=== PATIENT | female | born 1955 | race Caucasian/White ===

== ENCOUNTER 2017-03-09 16:44 | Emergency (ER) | payer OTHER ==
[~2017-03-09] VITALS: Ht 152.4 cm; Wt 90.7 kg
[~2017-03-09 16:44] MED LIST: ARIP1TAB5 PO; ASPI-449 PO; ATOR10TA52 PO; CLON2TAB3 PO; DOCU-80 PO; FLUO20CA19 PO; LANS15CA21 PO; LIS10T PO; NAPR220C PO; OXY10CRT PO
[2017-03-09] MEDS ORDERED: KETOROLAC TROMETH 60MG/2ML VIAL IM ONE ×2 (19:30→19:37)
[2017-03-09 20:22] VITALS: BP 129/68
== END 2017-03-09 20:21 | disposition home or self-care (01) ==
LOC: ER 16:51
DX: S80.02XA Contusion of left knee, initial encounter (principal); K21.9 Gastro-esophageal reflux disease without esophagitis; E78.5 Hyperlipidemia, unspecified; I10 Essential (primary) hypertension; Z79.899 Other long term (current) drug therapy; W01.0XXA Fall on same level from slipping, tripping and stumbling without subsequent striking against object, initial encounter; Y93.89 Activity, other specified; Y99.8 Other external cause status; Y92.89 Other specified places as the place of occurrence of the external cause
CPT/HCPCS: 73562; 73590; 93971; 96372; 99284; J1885

== ENCOUNTER 2017-03-14 08:26 | Emergency (ER) | payer OTHER ==
[~2017-03-14] VITALS: Ht 152.4 cm; Wt 90.7 kg
[2017-03-14 09:07] VITALS: BP 117/72
[2017-03-14] MEDS ORDERED: KETOROLAC TROMETH 60MG/2ML VIAL IM ONE (09:15)
== END 2017-03-14 09:45 | disposition home or self-care (01) ==
LOC: ER 08:26
DX: M17.12 Unilateral primary osteoarthritis, left knee (principal); K21.9 Gastro-esophageal reflux disease without esophagitis; E78.5 Hyperlipidemia, unspecified; I10 Essential (primary) hypertension; E66.9 Obesity, unspecified; Z79.899 Other long term (current) drug therapy; Z68.39 Body mass index [BMI] 39.0-39.9, adult
CPT/HCPCS: 96372; 99283; J1885

== ENCOUNTER 2017-11-09 18:43 | Emergency (ER) | payer OTHER ==
[~2017-11-09] VITALS: Ht 154.9 cm; Wt 90.7 kg
[2017-11-09 18:48] VITALS: BP 122/80
[2017-11-09 20:18] LABS: Basophils # (auto) 0 uL; Basophils % (auto) 0.7 % (0.0-2.0); Eosinophils # (auto) 0.3 uL; Eosinophils % (auto) 6.4 % (0.0-7.0); Hematocrit 36.6 % (36.0-46.0); Hemoglobin 12.2 g/dL (12.2-16.2); Lymphocytes # (auto) 1.6 uL; Lymphocytes % (auto) 31.2 % (10.0-50.0); Mean Corpuscular Hemoglobin 30.5 pg (28.0-32.0); Mean Corpuscular Hgb Conc. 33.3 g/dL (32.0-36.0); Mean Corpuscular Volume 91.6 fL (80.0-100.0); Monocytes # (auto) 0.4 uL; Monocytes % (auto) 8.1 % (0.0-12.0); Neutrophils # (auto) 2.8 uL; Neutrophils % (auto) 53.6 % (37.0-80.0); Nucleated Red Blood Cells % 0.1 %; Platelet Count (auto) 235 10^3/uL (140-450); Red Blood Cells 3.99 10^6/uL (4.0-5.20); Red Cell Distribution Width 14.3 % (11.8-14.3); White Blood Cell 5.2 10^3/uL (4.4-10.8)
[2017-11-09 20:39] LABS: Alanine Aminotransferase 33 U/L (13-56); Albumin 3.8 g/dL (3.4-5.0); Alkaline Phosphatase 88 U/L (45-117); Anion Gap 8 (5-15); Aspartate Aminotransferase 24 U/L (15-37); BUN/Creatinine Ratio 18.8; Bilirubin, Total 0.5 mg/dL (0.2-1.0); Blood Urea Nitrogen 16 mg/dL (7-18); Calcium 8.7 mg/dL (8.5-10.1); Carbon Dioxide 28 mmol/L (21-32); Chloride 102 mmol/L (98-107); GFR African American 87 mL/min; GFR Non-African American 72 mL/min; Glucose 115 mg/dL (74-106); Magnesium 2.5 mg/dL (1.6-2.6); Potassium 3.9 mmol/L (3.5-5.1); Sodium 138 mmol/L (136-145); Total Protein 7.6 g/dL (6.4-8.2)
== END 2017-11-09 23:32 | disposition left against medical advice (07) ==
LOC: ER 18:43
DX: R10.9 Unspecified abdominal pain (principal); Z90.49 Acquired absence of other specified parts of digestive tract; Z53.21 Procedure and treatment not carried out due to patient leaving prior to being seen by health care provider
CPT/HCPCS: 36415; 74176; 80053; 83735; 84484; 85025; 93005

== ENCOUNTER 2018-02-04 09:26 | Emergency (ER) | payer OTHER ==
[~2018-02-04] VITALS: Ht 152.4 cm; Wt 90.7 kg
[~2018-02-04 09:26] MED LIST changes: -CLON2TAB3 PO; +CLON2TAB6 PO
[2018-02-04 10:15] LABS: Urine Bacteria None Seen /hpf (None Seen)
[2018-02-04] MEDS ORDERED: PANTOPRAZOLE 40 MG/10 ML VIAL IV STA (10:30)
[2018-02-04 11:08] LABS: Urine WBC 2 /hpf (0 - 5)
[2018-02-04 11:09] LABS: Urine Specific Gravity 1.005 (1.001-1.035)
[2018-02-04 11:10] LABS: Urine Blood Normal /uL (Negative)
[2018-02-04 11:21] LABS: Basophils # (auto) 0 uL; Basophils % (auto) 0.8 % (0.0-2.0); Eosinophils # (auto) 0.4 uL; Eosinophils % (auto) 6.3 % (0.0-7.0); Hematocrit 37.3 % (36.0-46.0); Hemoglobin 12.3 g/dL (12.2-16.2); Lymphocytes # (auto) 1.8 uL; Lymphocytes % (auto) 32.4 % (10.0-50.0); Mean Corpuscular Hemoglobin 30.1 pg (28.0-32.0); Mean Corpuscular Volume 91.2 fL (80.0-100.0); Monocytes # (auto) 0.6 uL; Monocytes % (auto) 10.2 % (0.0-12.0); Neutrophils # (auto) 2.8 uL; Neutrophils % (auto) 50.3 % (37.0-80.0); Platelet Count (auto) 220 10^3/uL (140-450); Red Blood Cells 4.09 10^6/uL (4.0-5.20); Red Cell Distribution Width 14.7 % (11.8-14.3); White Blood Cell 5.6 10^3/uL (4.4-10.8)
[2018-02-04 11:51] LABS: Alanine Aminotransferase 32 U/L (13-56); Albumin 3.7 g/dL (3.4-5.0); Alkaline Phosphatase 92 U/L (45-117); Anion Gap 5 (5-15); Aspartate Aminotransferase 22 U/L (15-37); BUN/Creatinine Ratio 15.9; Bilirubin, Total 0.4 mg/dL (0.2-1.0); Blood Urea Nitrogen 13 mg/dL (7-18); Calcium 8.4 mg/dL (8.5-10.1); Carbon Dioxide 29 mmol/L (21-32); Chloride 106 mmol/L (98-107); GFR African American 90 mL/min; GFR Non-African American 75 mL/min; Glucose 86 mg/dL (74-106); Magnesium 2.6 mg/dL (1.6-2.6); Potassium 4.2 mmol/L (3.5-5.1); Sodium 140 mmol/L (136-145); Total Protein 7.7 g/dL (6.4-8.2)
[2018-02-04 12:39] VITALS: BP 124/79
[2018-02-04] MEDS ORDERED: PANTOPRAZOLE 40 MG TAB PO ONE (12:45)
== END 2018-02-04 12:45 | disposition home or self-care (01) ==
LOC: ER 09:26
DX: K59.00 Constipation, unspecified (principal); K21.9 Gastro-esophageal reflux disease without esophagitis; E78.5 Hyperlipidemia, unspecified; I12.9 Hypertensive chronic kidney disease with stage 1 through stage 4 chronic kidney disease, or unspecified chronic kidney disease; N18.3 Chronic kidney disease, stage 3 (moderate); Z79.82 Long term (current) use of aspirin; Z79.899 Other long term (current) drug therapy
CPT/HCPCS: 36415; 74176; 80053; 81001; 83690; 83735; 84484; 85025; 93005; 96374